=== PATIENT | male | born 1985 | race Caucasian/White ===

== ENCOUNTER 2020-04-20 20:53 | Emergency (ER) | payer OTHER, BC ==
[~2020-04-20] VITALS: Ht 188 cm; Wt 71.2 kg
== END 2020-04-20 22:23 | disposition home or self-care (01) ==
LOC: ER 20:53
DX: S61.012A Laceration without foreign body of left thumb without damage to nail, initial encounter (principal); Z23 Encounter for immunization; W45.8XXA Other foreign body or object entering through skin, initial encounter
CPT/HCPCS: 12001; 90471; 90714; 99282-25